=== PATIENT | male | born 2000 | race Hispanic/Latino ===

== ENCOUNTER 2022-07-12 04:33 | Emergency (ER) | payer SELFPAY ==
[2022-07-12] MEDS ORDERED: Dextrose 5 % And 0.9 % NaCl 1,000 ML ONE (05:11)
[2022-07-12] MEDS ORDERED: Thiamine HCl 200 MG/2 ML VIAL ONE (05:11)
[2022-07-12] MEDS ORDERED: Multivit, Adult Inj 10 ML VIAL ONE (05:11)
[2022-07-12 05:18] LABS: Alcohol 108 mg/dL (Less than 10)
[2022-07-12 05:23] LABS: Bilirubin Negative (Negative); Blood, Urine Trace (Negative); Clarity Clear (Clear); Glucose, Urine (Dipstick) Negative (Negative); Ketone, Urine Negative (Negative); Leukocyte Trace (Negative); Nitrite Negative (Negative); Protein, Urine (Dipstick) 30 mg/dL (Neg-Trace); Urobilinogen 0.2 mg/dL (Less than 2)
[2022-07-12 05:24] LABS: Bacteria/HPF None Seen HPF (None Seen); RBC/HPF 0-3 HPF (0-3); Squamous Epithelial 0-3 HPF (0-3); THC/Cannabinoid Screen Detected (NotDetected); WBC/HPF 0-3 HPF (0-3)
[2022-07-12 05:25] LABS: ALT (SGPT) 49 U/L (8-55); AST (SGOT) 24 U/L (5-34); Albumin 4.5 g/dL (3.5-5.0); Alkaline Phosphatase 83 U/L (40-110); Anion Gap 18 mmol/L (10-20); BUN (Urea Nitrogen) 6 mg/dL (8.9-20.6); Bilirubin, Total 0.6 mg/dL (0.2-1.2); Calc. Creatinine Clearance 0 mL/min (70-130); Calcium 8.4 mg/dL (7.8-10.44); Carbon Dioxide 19 mmol/L (22-29); Chloride 108 mmol/L (98-107); Estimated GFR 130; Glucose 114 mg/dL (70-105); Potassium 3.9 mmol/L (3.5-5.1); Protein, Total 7.5 g/dL (6.0-8.3); Sodium 141 mmol/L (136-145)
[2022-07-12 05:25] LABS: Amphetamine Not Detected (NotDetected); Barbiturates Screen Not Detected (NotDetected); Benzodiazepine Screen Not Detected (NotDetected); Cocaine Metabolite Screen Not Detected (NotDetected); Medtox Control Line Valid? VALID (VALID); Methadone Not Detected (NotDetected); Methamphetamine Not Detected (NotDetected); Opiate Screen Not Detected (NotDetected); Oxycodone Screen Not Detected (NotDetected); Phencyclidine (PCP) Not Detected (NotDetected); Tricyclic Screen Not Detected (NotDetected)
[2022-07-12 05:28] LABS: #Basophils 0.1 thou/uL (0.0-0.2); #Eosinphils 0.1 thou/uL (0.0-0.7); #Lymphocytes 2.2 thou/uL (1.20-3.40); #Monocytes 0.7 thou/uL (0.11-0.59); #Neutrophils 3.9 thou/uL (1.40-6.50); %Basophils 0.8 % (0.0-1.0); %Eosinophils 0.9 % (0.0-10.0); %Lymphocytes 30.9 % (21.0-51.0); %Monocytes 10.4 % (0.0-10.0); %Neutrophils 56.9 % (42.0-75.0); Acetaminophen Less than 10.0 mcg/mL (10.0-30.0); Manual Diff?? NO; Mean Corpuscular Volume 94.1 fl (78.0-98.0); Mean Platelet Volume 8.8 fL (7.4-10.4); Platelet Count 340 thou/uL (130-400); RBC Distribution Width 11.6 % (11.5-14.5); Red Blood Cell (RBC) Count 5.01 mill/uL (4.70-6.10); Salicylate Less than 8.0 mg/dL (15.0-30.0); White Blood Cell (WBC) Count 6.9 thou/uL (4.8-10.8)
== END 2022-07-12 05:50 | disposition home or self-care (01) ==
LOC: NAV ERS 04:33
DX: F10.129 Alcohol abuse with intoxication, unspecified (principal); F12.90 Cannabis use, unspecified, uncomplicated
CPT/HCPCS: 80053; 80306; 80307; 81003; 81015; 82140; 85025; 93005; 96365; 96375; J3411; J7042

== ENCOUNTER 2023-06-18 02:38 | Emergency (ER) | payer SELFPAY ==
[2023-06-18] MEDS ORDERED: Ibuprofen 800 MG TAB ONE (03:11)
[2023-06-18] MEDS ORDERED: Acetaminophen 500 MG TAB ONE (03:11)
== END 2023-06-18 06:00 | disposition home or self-care (01) ==
LOC: NAV ERS 02:38
DX: S30.0XXA Contusion of lower back and pelvis, initial encounter (principal); S20.219A Contusion of unspecified front wall of thorax, initial encounter; F17.290 Nicotine dependence, other tobacco product, uncomplicated; W19.XXXA Unspecified fall, initial encounter
CPT/HCPCS: 72128; 72131; 72192